=== PATIENT | female | born 2000 | race Hispanic/Latino ===

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

== ENCOUNTER 2022-01-11 11:01 | Emergency (ER) | payer OTHER, MEDICAID | END 2022-01-11 11:38 | disposition home or self-care (01) | LOC: ERS 11:01 | DX: U07.1 COVID-19 (principal) | CPT/HCPCS: 99284; U0003; U0005 ==

== ENCOUNTER 2023-05-08 13:27 | Emergency (ER) | payer MEDICAID, OTHER, SELFPAY ==
[2023-05-08 15:41] LABS: SARS-CoV-2 NAA Rapid Test Not Detected (NotDetected)
== END 2023-05-08 15:00 | disposition home or self-care (01) ==
LOC: ERS 13:27
DX: J06.9 Acute upper respiratory infection, unspecified (principal); Z20.822 Contact with and (suspected) exposure to COVID-19
CPT/HCPCS: 99283

== ENCOUNTER 2025-03-25 07:43 | Emergency (ER) | payer SELFPAY ==
[2025-03-25] MEDS ORDERED: Famotidine 20 MG TAB ONE (08:19)
[2025-03-25] MEDS ORDERED: predniSONE 20 MG TAB ONE (08:19)
== END 2025-03-25 09:37 | disposition home or self-care (01) ==
LOC: ERS 07:43
DX: T78.40XA Allergy, unspecified, initial encounter (principal)
CPT/HCPCS: 99283; J7512